=== PATIENT | female | born 1995 | race Caucasian/White ===

== ENCOUNTER 2019-06-18 05:12 | Inpatient (IN) | payer OTHER ==
[2019-06-18 05:39] VITALS: BMI 24.1
[2019-06-18] MEDS ORDERED: Ondansetron PF 4 MG/2 ML Vial IVP PRN ×2 (06:11→16:09)
[2019-06-18] MEDS ORDERED: Lidocaine 1% (PF) 30 ML VIAL SC PRN (06:11)
[2019-06-18] MEDS ORDERED: Ibuprofen 800 MG TAB PO PRN (06:11)
[2019-06-18] MEDS ORDERED: HYDROcodone/Acetaminophen 5/325 mg Tablet PO PRN ×2 (06:11)
[2019-06-18] MEDS ORDERED: Promethazine HCl 25 MG/ML VIAL IM PRN (06:11)
[2019-06-18] MEDS ORDERED: hydrALAZINE 20 MG/ML VIAL SLOW IVP PRN ×2 (06:11→16:09)
[2019-06-18] MEDS: Lactated Ringer's 1,000 ML IV SCH (06:15)
[2019-06-18] MEDS ORDERED: NS w/ Oxytocin 10 units 500 ML IV SCH (06:15)
[2019-06-18] MEDS ORDERED: Lactated Ringer's 1,000 ML IV SCH (06:15)
[2019-06-18] MEDS ORDERED: Butorphanol Tartrate 1 MG/ML VIAL ONE (06:18)
[2019-06-18 06:27] LABS: Hemoglobin 12.3 g/dL (12.0-16.0); Mean Corpuscular HGB CONC 33.9 g/dL (32.0-36.0); Mean Corpuscular Volume 91.4 fL (78.0-98.0); Mean Platelet Volume 9.7 fL (7.4-10.4); Platelet Count 182 thou/uL (130-400); RBC Distribution Width 11.8 % (11.5-14.5); Red Blood Cell (RBC) Count 3.96 mill/uL (4.20-5.40); White Blood Cell (WBC) Count 10.7 thou/uL (4.8-10.8)
[2019-06-18 07:03] LABS: HBSAg Index 0.17 S/CO (0-0.99); Hep B Surf Ag Non-Reactive S/CO (NonReactive); Syphilis Antibody Nonreactive (Nonreactive); Syphilis Antibody Index 0.04 S/CO (<1.00 Non-Reactive)
[2019-06-18] MEDS: Butorphanol Tartrate 1 MG/ML VIAL SLOW IVP PRN ×3 (07:46→10:58)
[2019-06-18] MEDS: NS / Oxytocin 40 units/1000ml 1,000 ML IV PRN ×2 (14:09→15:57)
[2019-06-18] MEDS ORDERED: Preparation H Ointment 28 GM TUBE PR PRN (16:09)
[2019-06-18] MEDS ORDERED: NS / Oxytocin 40 units/1000ml 1,000 ML IV SCH (16:09)
[2019-06-18] MEDS ORDERED: Milk Of Magnesia 30 ML UDCUP PO PRN (16:09)
[2019-06-18] MEDS ORDERED: Zolpidem Tartrate 5 MG TAB PO PRN (16:09)
[2019-06-18] MEDS ORDERED: Bisacodyl 10 MG SUPP PR PRN (16:09)
[2019-06-18] MEDS ORDERED: Lanolin Ointment 7 GM TUBE TOP PRN (16:09)
[2019-06-18] MEDS: Ibuprofen 800 MG TAB PO SCH (21:47)
[2019-06-18] MEDS: Docusate Calcium (SURFAK) 240 MG CAP PO SCH (21:47)
[2019-06-19] MEDS: Ibuprofen 800 MG TAB PO SCH ×2 (06:19→13:51)
[2019-06-19 06:23] LABS: #Eosinphils 0.1 thou/uL (0.0-0.7); #Lymphocytes 1.2 thou/uL (1.20-3.40); #Monocytes 0.7 thou/uL (0.11-0.59); #Neutrophils 8.3 thou/uL (1.40-6.50); %Basophils 0.3 % (0.0-1.0); %Eosinophils 0.6 % (0.0-10.0); %Lymphocytes 11.6 % (21.0-51.0); %Monocytes 6.9 % (0.0-10.0); %Neutrophils 80.6 % (42.0-75.0); Hemoglobin 10.4 g/dL (12.0-16.0); Mean Corpuscular HGB CONC 34.5 g/dL (32.0-36.0); Mean Corpuscular Hemoglobin 31.6 pg (27.0-31.0); Mean Corpuscular Volume 91.7 fL (78.0-98.0); Mean Platelet Volume 9.4 fL (7.4-10.4); Platelet Count 172 thou/uL (130-400); RBC Distribution Width 11.9 % (11.5-14.5); White Blood Cell (WBC) Count 10.3 thou/uL (4.8-10.8)
--- NOTE | 2019-06-19 07:56 | DN ---
DATE OF PROCEDURE: 06/18/2019 The patient delivered a female by term spontaneous vaginal delivery on 06/18/2019 at 1402 hours. weight was 3072 g. Apgars were 8 and 9. Placenta was delivered spontaneously followed by Pitocin infusion. There were no lacerations. Quantitative blood loss was [address] Agudelo is the delivering physician. Counts were correct. Mother and baby were stable in the room in the immediate . Job ID: [id number]
[2019-06-19 08:10] VITALS: BP 107/59; TEMP 98.3
[2019-06-19] MEDS: Docusate Calcium (SURFAK) 240 MG CAP PO SCH (08:25)
[2019-06-19] MEDS: Ferrous Sulfate 325 MG TAB PO SCH (08:25)
[2019-06-19] MEDS ORDERED: Prenatal Vitamin 1 TAB PO SCH (09:00)
[2019-06-19] MEDS ORDERED: Adacel (T-DAP) 0.5 ML SYRINGE IM ONE (09:00)
[2019-06-19] MEDS: Lactated Ringer's 1,000 ML IV SCH (14:46)
[2019-06-19] MEDS ORDERED: Measles/Mumps/Rubella 10 MCG/0.5 ML VIAL SC ONE (15:30)
--- NOTE | 2019-06-21 09:37 | DIS ---
DATE OF ADMISSION: 06/18/2019 DATE OF DISCHARGE: 06/19/2019 PRIMARY OB: Matt Aburto DO, [place] HISTORY OF PRESENT ILLNESS: The patient is a 23-year-old female, day 1, status post a term spontaneous vaginal delivery. Delivery was uncomplicated. Please refer to the delivery note for complete details. Today is day 1. She reports she is tolerating p.o., voiding on her own, having decreased lochia and good pain control. DISCHARGE PHYSICAL EXAMINATION: VITAL SIGNS: Blood pressure is 102/62, temperature 98.2, pulse is 75, respiratory rate of 19. GENERAL: She appears to be in no acute distress. She is alert, oriented, cooperative, and pleasant to interact with. HEENT: Head is normocephalic, atraumatic. ABDOMEN: Fundus is firm. EXTREMITIES: Nontender, nonedematous. LABORATORY DATA: The patient has a postdelivery hemoglobin of 10.4, hematocrit 30.3, platelets are 172,000. DISCHARGE INSTRUCTIONS: The patient is being discharged home with ibuprofen p.r.n. for pain control. She has instructions to follow up with Dr. Aburto in 6 weeks or sooner if needed. She will be given instructions to seek medical attention if she experiences fever, increasing pain, or bleeding. Job ID: [id number]
== END 2019-06-19 16:00 | disposition home or self-care (01) | DRG 807 ==
LOC: L&D/OP 05:12 → L&D 05:59 → 3SW 17:34
PROVIDERS: ADMIT Obstetrics & Gynecology; ATTEND Obstetrics & Gynecology
PROC: 10E0XZZ Delivery of Products of Conception, External Approach (ICD-10-PCS; principal; 2019-06-18)
PROC: 3E033VJ Introduction of Other Hormone into Peripheral Vein, Percutaneous Approach (ICD-10-PCS; 2019-06-18)
DX: O80 Encounter for full-term uncomplicated delivery (principal); Z37.0 Single live birth; Z3A.38 38 weeks gestation of pregnancy
CPT/HCPCS: 36415; 85025; 85027; 86780; 86850; 86900; 86901; 87340; 90707; 99285; J0595; J2590